=== PATIENT | male | born 1985 | race Caucasian/White ===

== ENCOUNTER 2019-01-06 23:34 | Emergency (ER) | payer OTHER ==
[~2019-01-06] VITALS: Ht 167.6 cm; Wt 90.0 kg
[~2019-01-06 23:34] MED LIST: OXYC10TA58 PO; TRAM50TA3 PO
[2019-01-07] MEDS ORDERED: TETRACAINE 0.5% OPHTH DROPS 4ML OP ONE (00:45)
[2019-01-07] MEDS ORDERED: IBUPROFEN 600MG TABLET PO ONE (00:45)
[2019-01-07 02:30] VITALS: BP 135/79
== END 2019-01-07 02:30 | disposition home or self-care (01) ==
LOC: ER 23:34
DX: T60.8X1A Toxic effect of other pesticides, accidental (unintentional), initial encounter (principal); H10.213 Acute toxic conjunctivitis, bilateral; Z98.890 Other specified postprocedural states; Y92.018 Other place in single-family (private) house as the place of occurrence of the external cause
CPT/HCPCS: 99283